=== PATIENT | male | born 1940 | race Hispanic/Latino ===

== ENCOUNTER 2019-09-26 21:00 | Emergency (ER) | payer MEDICARE ==
[~2019-09-26] VITALS: Ht 172.7 cm; Wt 77.1 kg
[2019-09-26 22:49] LABS: BASOPHILS # (AUTO) 0.1 (0.0-0.1); BASOPHILS % 0.4 % (0.0-1.0); EOSINOPHILS % 0.1 % (0.0-6.0); HEMATOCRIT 44.5 % (38.2-49.6); LYMPHOCYTES # (AUTO) 0.7 (1.0-3.2); MEAN CORPUSCULAR HEMOGLOBIN 29.1 pg (28-32); MEAN CORPUSCULAR HGB CONC 33.7 g/dL (31-35); MEAN CORPUSCULAR VOLUME 86.2 fL (81-99); MONOCYTES # (AUTO) 0.5 (0.2-0.8); NEUTROPHILS # (AUTO) 14.8 (2.1-6.9); PLATELET COUNT 275 x10e3/uL (140-360); RED BLOOD COUNT 5.16 x10e6/uL (4.3-5.7); RED CELL DISTRIBUTION WIDTH 13.2 % (11.7-14.4)
[2019-09-26] MEDS ORDERED: DIATRIZOATE MEGL/DIATRIZOA SOD 30 ML BTL PO ONE (22:50)
[2019-09-26 23:10] LABS: ALBUMIN 4.6 g/dL (3.5-5.0); ANION GAP 16.9 mmol/L (8-16); CALCIUM 12.1 mg/dL (8.4-10.2); CREATININE, SERUM 1.4 mg/dL (0.72-1.25); POTASSIUM 3.9 mmol/L (3.5-5.1)
[2019-09-26 23:11] LABS: AMYLASE 80 U/L (25-125); LIPASE 49 U/L (8-78)
[2019-09-26 23:18] LABS: CREATINE KINASE MB 2.4 ng/mL (0-5.0)
[2019-09-27] MEDS ORDERED: SODIUM CHLORIDE 0.9% 500ML 500 ML ONE (00:37)
[2019-09-27] MEDS ORDERED: SODIUM CHLORIDE 0.9% 1000ML 500 ML IV ONE (01:00)
--- NOTE | 2019-09-27 01:08 | Emergency Department Note ---
History of Present Illnes History of Present Illness Chief Complaint: Abdominal Complaints History of Present Illness This is a 79 year old male arrives to the ED with complaints of abdominal pain nausea vomiting for several days getting worse. . Chief Complaint Comment 79 Y/O MALE PT AAOX3 REPORTS N/V/D X4 EPISODES TODAY; PTS V/S/S; PT REPORTS WAS TAKING LAXATIVES FOR CONSTIPATION YESTERDAY; 18 GAUGE IV CATH PLACED TO PTS LEFT AC, BLOOD OBTAINED FOR LAB ANALYSIS; EKG PERFORMED AND GIVEN TO ER MD FOR REVIEW Historian: Patient, Family Member Arrival Mode: Car Onset (how long ago): day(s) Radiation: Reports non-radiation Duration (how long): day(s) Timing of current episode: constant Progression: worsening Chronicity: new Relieving factors: none Exacerbating factors: none Associated symptoms: Reports denies other symptoms Past Medical/Family History Physician Review I have reviewed the patient's past medical and family history. Any updates have been documented here. Past Medical History Recent Fever: No Clinical Suspicion of Infectio: No New/Unexplained Change in Ment: No Past Medical History: Hypertension, Diabetes, Hypothyroidism, Hyperlipedemia Other Medical History: bph Past Surgical History: Cholecysctectomy Other Surgery: r shoulder surgery Social History Smoking Cessation: Former smoker Counseling Performed: No Alcohol Use: None Any Illegal Drug Use: No Physically hurt or threatened: No Other Any Pre-Existing Lines (PICC,: No Review of Systems Review of Systems Constitutional: Reports no symptoms EENTM: Reports no symptoms Cardiovascular: Reports no symptoms Respiratory: Reports no symptoms Gastrointestinal: Reports as per HPI, Reports abdominal pain, Reports nausea, Reports vomiting Genitourinary: Reports no symptoms Musculoskeletal: Reports no symptoms Integumentary: Reports no symptoms Neurological: Reports no symptoms Psychological: Reports no symptoms Endocrine: Reports no symptoms Hematological/Lymphatic: Reports no symptoms Physical Exam Related Data Triage Vital Signs Vital Signs Date Time Temp Pulse Resp B/P (MAP) Pulse Ox O2 Delivery O2 Flow Rate FiO2 09/26/19 22:21 98.3 96 18 116/63 96 Room Air Vital signs reviewed: Yes Physical Exam CONSTITUTIONAL Constitutional: Present well-developed HENT HENT: Present normocephalic, Present atraumatic, Present oropharynx clear/moist, Present nose normal HENT L/R: Present left ext ear normal, Present right ext ear normal EYES Eyes: Reports PERRL, Reports conjunctivae normal NECK Neck: Present ROM normal PULMONARY Pulmonary: Present effort normal, Present breath sounds normal CARDIOVASCULAR Cardiovascular: Present regular rhythm, Present heart sounds normal, Present capillary refill normal, Present normal rate GASTROINTESTINAL Abdominal: Present soft, Present distension; Absent bowel sounds normal GENITOURINARY Genitourinary: Present exam deferred SKIN Skin: Present warm, Present dry MUSCULOSKELETAL Musculoskeletal: Present ROM normal NEUROLOGICAL Neurological: Present alert, Present oriented x 3, Present no gross motor or sensory deficits PSYCHOLOGICAL Psychological: Present mood/affect normal, Present judgement normal Results Laboratory Result Diagram: 09/26/19223809/26/192238 Laboratory Laboratory Tests Test 09/26/19 22:39 White Blood Count 16.07 x10e3/uL (4.8-10.8) Red Blood Count 5.16 x10e6/uL (4.3-5.7) Hemoglobin 15.0 g/dL (14.0-18.0) Hematocrit 44.5 % (38.2-49.6) Mean Corpuscular Volume 86.2 fL (81-99) Mean Corpuscular Hemoglobin 29.1 pg (28-32) Mean Corpuscular Hemoglobin Concent 33.7 g/dL (31-35) Red Cell Distribution Width 13.2 % (11.7-14.4) Platelet Count 275 x10e3/uL (140-360) Neutrophils (%) (Auto) 92.0 % (38.7-80.0) Lymphocytes (%) (Auto) 4.0 % (18.0-39.1) Monocytes (%) (Auto) 3.0 % (4.4-11.3) Eosinophils (%) (Auto) 0.1 % (0.0-6.0) Basophils (%) (Auto) 0.4 % (0.0-1.0) Neutrophils # (Auto) 14.8 (2.1-6.9) Lymphocytes # (Auto) 0.7 (1.0-3.2) Monocytes # (Auto) 0.5 (0.2-0.8) Eosinophils # (Auto) 0.0 (0.0-0.4) Basophils # (Auto) 0.1 (0.0-0.1) Absolute Immature Granulocyte (auto 0.08 x10e3/uL (0-0.1) Sodium Level 138 mmol/L (136-145) Potassium Level 3.9 mmol/L (3.5-5.1) Chloride Level 93 mmol/L (98-107) Carbon Dioxide Level 32 mmol/L (22-29) Anion Gap 16.9 mmol/L (8-16) Blood Urea Nitrogen 16 mg/dL (7-26) Creatinine 1.40 mg/dL (0.72-1.25) Estimat Glomerular Filtration Rate 49 ML/MIN (60-) BUN/Creatinine Ratio 11 (6-25) Glucose Level 182 mg/dL (74-118) Calcium Level 12.1 mg/dL (8.4-10.2) Total Bilirubin 1.2 mg/dL (0.2-1.2) Aspartate Amino Transf (AST/SGOT) 22 IU/L (5-34) Alanine Aminotransferase (ALT/SGPT) 19 IU/L (0-55) Alkaline Phosphatase 93 IU/L (40-150) Creatine Kinase 57 IU/L (30-200) Creatine Kinase MB 2.40 ng/mL (0-5.0) Troponin I 0.003 ng/mL (0-0.300) Total Protein 9.0 g/dL (6.5-8.1) Albumin 4.6 g/dL (3.5-5.0) Globulin 4.4 g/dL (2.3-3.5) Albumin/Globulin Ratio 1.0 (0.8-2.0) Amylase Level 80 U/L (25-125) Lipase 49 U/L (8-78) Lab results reviewed: Yes Imaging Imaging results reviewed: Yes Impressions IMPRESSION: 1. Findings of uncomplicated sigmoid diverticulitis. Recommend follow-up colonoscopy to exclude malignancy. 2. Several dilated fluid-filled loops of small bowel, without transition point, taper at the ileocecal valve, with fluid throughout the colon and rectum as seen with enterocolitis. A component of reactive ileus is also possible due to diverticulitis. 3. Pulmonary ground glass opacities in the right middle and lower and lingular could be due to multifocal pneumonia, aspiration is also consideration. 4. Triple vessel coronary artery calcific atherosclerosis. Signed by: Kale Langston DO on 09/27/2019 2:17 AM Assessment & Plan Medical Decision Making MDM 79-year-old male arrives to the ED with complaints of abdominal pain nausea and vomiting. Patient's labwork shows a WBC count of 16,000, CT of the pelvis consistent with acute diverticulitis. Patient hemodynamically stable, given a dose of Cipro Flagyl me ED and discharged home on the same. No indication for hospital admission at this time. Patient's CT abdomen and pelvis is concerning for possible Coban 19. Patient informed of concerns that he may have the coronavirus. Patient expressed understanding, stable for discharge home with Cipro and Flagyl Assessment & Plan Final Impression: (1) Diverticulitis (2) COVID-19 Depart Disposition: HOME, SELF-CARE Last Vital Signs Date Time Temp Pulse Resp B/P (MAP) Pulse Ox O2 Delivery O2 Flow Rate FiO2 09/26/19 23:45 98.9 108 25 112/64 97 09/26/19 22:21 Room Air Home Meds Active Scripts Metronidazole (FLAGYL) 500 Mg Tablet, 500 MG PO Q8HR, #42 0 Refills Prov:ARNULFO BARNES DO 09/27/19 Ciprofloxacin Hcl (CIPRO) 500 Mg Tablet, 500 MG PO BID, #28 TAB 0 Refills Prov:ARNULFO BARNES DO 09/27/19 Medications in the ED Diatrizoate Meglum/ Diatrizoate Sod 30 ml STK-MED ONCE PO ; Start 09/26/19 at 22:50; Stop 09/26/19 at 22:44; Status DC Sodium Chloride 500 ml @ ud STK-MED ONCE .ROUTE ; Start 09/27/19 at 00:37; Stop 09/27/19 at 00:31; Status DC Sodium Chloride 500 ml @ 999 mls/hr Q31M ONCE IV Last administered on 09/27/19at 00:30; Admin Dose 999 MLS/HR; Start 09/27/19 at 01:00; Stop 09/27/19 at 01:30 ARNULFO BARNES DO Sep 27, 2019 01:08
--- NOTE | 2019-09-27 02:20 | Diagnostic Imaging Report ---
EXAM: CT Abdomen and Pelvis WITH contrast INDICATION: Bowel obstruction COMPARISON: None. TECHNIQUE: Abdomen and pelvis were scanned utilizing a multidetector helical scanner from the lung base to the pubic symphysis after administration of IV contrast. Coronal and sagittal reformations were obtained. Routine protocol was performed. Scan was performed when during portal venous phase. IV CONTRAST: 100 mL of Isovue 370 ORAL CONTRAST: Gastrografin COMPLICATIONS: None RADIATION DOSE: Total DLP: 476 mGy*cm Estimated effective dose: (DLP x 0.015 x size factor) mSv CTDIvol has been reviewed. It is below the limits set by the Radiation Protocol Committee (RPC). Dose modulation, iterative reconstruction, and/or weight based adjustment of the mA/kV was utilized to reduce the radiation dose to as low as reasonably achievable. FINDINGS: LINES and TUBES: None. LOWER THORAX: Triple vessel coronary artery calcific atherosclerosis. Groundglass opacities in the right middle and lower lobes and lingula. HEPATOBILIARY: No focal hepatic lesions. No biliary ductal dilation. GALLBLADDER: There are cholecystectomy clips. SPLEEN: No splenomegaly. PANCREAS: No focal masses or ductal dilatation. ADRENALS: No adrenal nodules KIDNEYS/URETERS: Kidneys enhance symmetrically. No hydronephrosis. A 1.5 cm simple right renal cyst. No solid mass lesions. No stones. GI TRACT: A 9.2 cm segment of sigmoid wall thickening, hyperenhancement, and pericolonic fat stranding in the midst of numerous colonic diverticuli. Dilated fluid-filled loop small bowel, without transition point, taper at the ileocecal valve, and fluid throughout the colon and rectum. Max small bowel dilation is 3.1 cm. Ingested contrast traverses to the distal intestine but has not yet reached the colon. Appendix is normal. PELVIC ORGANS/BLADDER: Unremarkable. LYMPH NODES: No lymphadenopathy. VESSELS: Arterial calcifications. PERITONEUM / RETROPERITONEUM: No free air or fluid. BONES: Degenerative changes. SOFT TISSUES: Unremarkable. IMPRESSION: 1. Findings of uncomplicated sigmoid diverticulitis. Recommend follow-up colonoscopy to exclude malignancy. 2. Several dilated fluid-filled loops of small bowel, without transition point, taper at the ileocecal valve, with fluid throughout the colon and rectum as seen with enterocolitis. A component of reactive ileus is also possible due to diverticulitis. 3. Pulmonary ground glass opacities in the right middle and lower and lingular could be due to multifocal pneumonia, aspiration is also consideration. 4. Triple vessel coronary artery calcific atherosclerosis. Signed by: Kale Langston DO on 09/27/2019 2:17 AM
[2019-09-27] MEDS ORDERED: SODIUM CHLORIDE 0.9% 50ML 50 ML ONE (02:54)
[2019-09-27] MEDS ORDERED: IOPAMIDOL 370 MG/ML 200 ML INFUS..BTL INJ ONE (02:54)
[2019-09-27] MEDS ORDERED: CIPROFLOXACIN 500 MG TAB PO SCH (03:00)
[2019-09-27] MEDS ORDERED: METRONIDAZOLE 500 MG TAB PO ONE (03:00)
[2019-09-27] MEDS ORDERED: CIPRO500 MG PO (03:07)
[2019-09-27] MEDS ORDERED: FLAGYL500 MG PO (03:07)
[2019-09-27] MEDS ORDERED: ACETAMINOPHEN 325 MG TAB PO ONE (03:30)
[2019-09-27 04:35] VITALS: BP 113/63
== END 2019-09-27 09:59 | disposition home or self-care (01) ==
LOC: ER 09-27 04:45
DX: K57.32 Diverticulitis of large intestine without perforation or abscess without bleeding (principal); I10 Essential (primary) hypertension; E11.9 Type 2 diabetes mellitus without complications; E03.9 Hypothyroidism, unspecified; E78.5 Hyperlipidemia, unspecified; N40.0 Benign prostatic hyperplasia without lower urinary tract symptoms; Z90.49 Acquired absence of other specified parts of digestive tract; Z87.891 Personal history of nicotine dependence
CPT/HCPCS: 36415; 74177; 80053; 82150; 82550; 82553; 83690; 84484; 85025; 93005; 99284; J7040; Q9967